=== PATIENT | male | born 1965 | race Caucasian/White ===

== ENCOUNTER 2019-04-06 15:07 | Emergency (ER) | payer MEDICAID ==
[~2019-04-06] VITALS: Ht 175.3 cm; Wt 104.3 kg
[~2019-04-06 15:07] MED LIST: BENA10TA11 PO
--- NOTE | 2019-04-06 15:30 | NUR ---
patient c/o "R Arm pain started 1wk ago mostly R elbow going up". on room air, breathing evenly andunlabored. kept comfortable, will continue to monitor accordingly.
[2019-04-06] MEDS ORDERED: ACETAMINOPHEN 325 MG TABLET PO ONE (16:00)
[2019-04-06] MEDS ORDERED: ACETAMINOPHEN ES 500 MG TABLET ONE (16:09)
[2019-04-06 16:58] VITALS: BP 128/97
--- NOTE | 2019-04-06 16:58 | NUR ---
Patient discharged to home in stable condition. Written and verbal after care instructions given. Patient verbalizes understanding of instruction.
== END 2019-04-06 16:58 | disposition home or self-care (01) ==
LOC: ER 15:12
DX: M79.621 Pain in right upper arm (principal); M25.521 Pain in right elbow; I10 Essential (primary) hypertension; Z86.718 Personal history of other venous thrombosis and embolism; Z88.1 Allergy status to other antibiotic agents; Z79.899 Other long term (current) drug therapy; Z85.820 Personal history of malignant melanoma of skin
CPT/HCPCS: 93971-TC

== ENCOUNTER 2020-03-30 15:31 | Emergency (ER) | payer MEDICAID ==
[~2020-03-30] VITALS: Ht 175.3 cm; Wt 104.3 kg
[~2020-03-30 15:31] MED LIST changes: -BENA10TA11 PO; +BENA10TA74 PO
[2020-03-30 16:06] VITALS: BP 146/95
[2020-03-30] MEDS ORDERED: DEXAMETHASONE SOD PHOSPHATE 10 MG/ML VIAL ONE (16:29)
[2020-03-30] MEDS ORDERED: HYDROCODONE/APAP 5/325MG TABLET ONE (16:29)
[2020-03-30] MEDS: DEXAMETHASONE SOD PHOSPHATE 4 MG/ML VIAL IM ONE (16:35)
[2020-03-30] MEDS: HYDROCODONE/APAP 5/325MG TABLET PO ONE (16:36)
== END 2020-03-30 17:21 | disposition home or self-care (01) ==
LOC: ER 15:40
DX: S39.012A Strain of muscle, fascia and tendon of lower back, initial encounter (principal); I10 Essential (primary) hypertension; Z86.718 Personal history of other venous thrombosis and embolism; Z85.820 Personal history of malignant melanoma of skin; Z88.1 Allergy status to other antibiotic agents; Z79.899 Other long term (current) drug therapy; X58.XXXA Exposure to other specified factors, initial encounter; Y93.89 Activity, other specified; Y92.89 Other specified places as the place of occurrence of the external cause; Y99.8 Other external cause status
CPT/HCPCS: 96372; 99283; J1100

== ENCOUNTER 2021-04-04 11:11 | Emergency (ER) | payer MEDICAID ==
[~2021-04-04] VITALS: Ht 175.3 cm; Wt 117.9 kg
--- NOTE | 2021-04-04 11:30 | NUR ---
THE PATIENT BIBS FOR C/O LEFT SIDED CHEST "TIGHTNESS" & L ARM TINGLING, SOB X1 MONTH ON & OFF WORSE TODAY. RATES PAIN 7/10. IN ROOM AIR AND DENIES SOB. RESPIRATION REGULAR AND UNLABORED. THE PATIENT IS ATTACHED TO THE MONITOR. WARM BLANKET PROVIDED FOR COMFORT. WILL CONTINUE TO MONITOR THE PATIENT.
--- NOTE | 2021-04-04 11:35 | NUR ---
STARTED LAC G 18, BLOOD SPECIMEN COLLECTED AND SENT TO THE LAB. THE LINE IS SALINE LOCKED.
--- NOTE | 2021-04-04 11:38 | NUR ---
DR ESTRADA AT THE BEDSIDE
[2021-04-04 12:10] LABS: BASOPHILS # (AUTO) 0.1 K/uL (0.0-0.2); BASOPHILS % (AUTO) 0.9 % (0.0-2.0); EOSINOPHILS % (AUTO) 1.6 % (0.0-6.0); HEMATOCRIT 43 % (39-51); HEMOGLOBIN 14.7 g/dL (13.5-17.5); LYMPHOCYTES # (AUTO) 1.7 K/uL (0.8-4.8); LYMPHOCYTES % (AUTO) 26.8 % (20.0-44.0); MEAN CORPUSCULAR HGB CONC 35 g/dl (31.0-36.0); MEAN CORPUSCULAR VOLUME 91 fL (80-96); MONOCYTES # (AUTO) 0.6 K/uL (0.1-1.30); NEUTROPHILS # (AUTO) 3.8 K/uL (1.8-8.9); NEUTROPHILS % (AUTO) 60.7 % (43.0-81.0); PLATELET COUNT (AUTO) 192 K/uL (150-450); RED BLOOD CELL COUNT(AUTO) 4.69 MIL/uL (4.5-6.0); WHITE BLOOD COUNT (AUTO) 6.3 K/uL (4.3-11.0)
[2021-04-04 12:17] LABS: CALCIUM, SERUM 8.4 mg/dL (8.5-10.1); CARBON DIOXIDE 26 mmol/L (21-32); CHLORIDE 102 mmol/L (98-107); CREATININE 0.9 mg/dL (0.6-1.3); GLUCOSE 100 mg/dL (74-106); POTASSIUM 4.1 mmol/L (3.5-5.1); SODIUM SERUM 137 mmol/L (136-145); UREA NITROGEN, BLOOD 19 mg/dL (7-18)
--- NOTE | 2021-04-04 13:52 | NUR ---
Patient a/ox4, breathing even and unlabored, no sob noted. Needs attended. IV removed. Catheter intact and site benign. Pressure and 4x4 applied to site. No bleeding noted.Patient discharged to home in stable condition. Written and verbal after care instructions given. Patient verbalizes understanding of instruction.
[2021-04-04 13:54] VITALS: BP 151/91
== END 2021-04-04 13:54 | disposition home or self-care (01) ==
LOC: ER 11:14
DX: R07.89 Other chest pain (principal); R22.32 Localized swelling, mass and lump, left upper limb; I10 Essential (primary) hypertension; Z86.718 Personal history of other venous thrombosis and embolism; Z98.890 Other specified postprocedural states; Z88.1 Allergy status to other antibiotic agents; Z79.899 Other long term (current) drug therapy
CPT/HCPCS: 36415; 71045-TC; 80048-TC; 84484-TC; 85025-TC; 93971-TC

== ENCOUNTER 2023-07-05 18:18 | Emergency (ER) | payer MEDICAID ==
[~2023-07-05] VITALS: Ht 175.3 cm; Wt 113.9 kg
[2023-07-05 18:48] VITALS: BP 143/90; TEMP 98.3; O2SAT 100
[2023-07-07] MEDS ORDERED: Magnesium 1GM/D5W 100ML PREMIX 100 ML IV ONE ×2 (11:31→11:35)
== END 2023-07-05 19:33 | disposition left against medical advice (07) ==
LOC: ER 18:18
DX: R05.9 Cough, unspecified (principal); R09.81 Nasal congestion
CPT/HCPCS: J3475

== ENCOUNTER 2025-04-11 13:07 | Emergency (ER) | payer MEDICAID, OTHER ==
[~2025-04-11] VITALS: Ht 175.3 cm; Wt 108.9 kg
[2025-04-11 13:39] VITALS: TEMP 98
[2025-04-11] MEDS ORDERED: HYDR-4303 PO (13:53)
[2025-04-11] MEDS ORDERED: LIDO30AD10 TP (13:53)
[2025-04-11] MEDS ORDERED: METH4TAB3 PO (13:53)
[2025-04-11] MEDS ORDERED: CYCL5TAB PO (13:53)
[2025-04-11] MEDS ORDERED: KETOROLAC TROMETHAMINE 15 MG/ML VIAL ONE (14:01)
[2025-04-11] MEDS ORDERED: dexaMETHasone SOD PHOSPHATE 1 ML ONE (14:01)
[2025-04-11] MEDS: dexaMETHasone SOD PHOSPHATE 10 MG/ML VIAL IM ONE (14:08)
[2025-04-11] MEDS: KETOROLAC TROMETHAMINE 15 MG/ML VIAL IM ONE (14:08)
[2025-04-11 14:10] VITALS: BP 134/84; O2SAT 97
== END 2025-04-11 14:10 | disposition home or self-care (01) ==
LOC: ER 13:13
DX: M54.41 Lumbago with sciatica, right side (principal); M54.42 Lumbago with sciatica, left side; I10 Essential (primary) hypertension; Z85.820 Personal history of malignant melanoma of skin; Z86.718 Personal history of other venous thrombosis and embolism; Z88.1 Allergy status to other antibiotic agents; Z86.79 Personal history of other diseases of the circulatory system
CPT/HCPCS: 99284; 96372; J1885; J1100